=== PATIENT | female | born 1995 | race Two or more races ===

== ENCOUNTER 2018-10-30 05:20 | Emergency (ER) | payer SELFPAY ==
[~2018-10-30] VITALS: Ht 160 cm; Wt 63.5 kg
--- NOTE | 2018-10-30 05:43 | ED.ADGEN ---
Adult General Chief Complaint Chief Complaint abd pain (SUDHIR HEREDIA MD) HPI HPI 24 hours old female whose 2 and half months presented to the emergency department with abdominal pain described as burning sensation in the epigastric area radiating chest associated with nausea and some vomiting she mentioned that she's having history of acid reflux. Also she noticed spotting with pelvic cramps resolved prior to her presentation to the emergency department no active bleeding, (SUDHIR HEREDIA MD) Review of Systems Review of Systems Constitutional: Denies fever or chills [] Eyes: Denies change in visual acuity, redness, or eye pain [] HENT: Denies nasal congestion or sore throat [] Respiratory: Denies cough or shortness of breath [] Cardiovascular: No additional information not addressed in HPI [] GI: Denies abdominal pain, nausea, vomiting, bloody stools or diarrhea [] : Denies dysuria or hematuria [] Musculoskeletal: Denies back pain or joint pain [] Integument: Denies rash or skin lesions [] Neurologic: Denies headache, focal weakness or sensory changes [] Endocrine: Denies polyuria or polydipsia [] All other systems were reviewed and found to be within normal limits, except as documented in this note. (SUDHIR HEREDIA MD) Current Medications Current Medications Current Medications Medications (Trade) Dose Ordered Sig/Yunior Start Time Stop Time Status Last Admin Dose Admin Ondansetron HCl (Zofran Odt) 4 mg 1X ONCE 10/30/18 07:00 10/30/18 07:01 DC 10/30/18 06:45 4 MG Pantoprazole Sodium (Protonix) 40 mg STK-MED ONCE 10/30/18 06:43 10/30/18 06:44 DC (THELMA PORTER DO) Allergies Allergies Allergies Coded Allergies Type Severity Reaction Last Updated Verified No Known Drug Allergies 10/30/18 No (THELMA PORTER DO) Physical Exam Physical Exam Constitutional: Well developed, well nourished, no acute distress, non-toxic appearance. [] HENT: Normocephalic, atraumatic, bilateral external ears normal, oropharynx moist, no oral exudates, nose normal. [] Eyes: PERRLA, EOMI, conjunctiva normal, no discharge. [] Neck: Normal range of motion, no tenderness, supple, no stridor. [] Cardiovascular:Heart rate regular rhythm, no murmur [] Lungs & Thorax: Bilateral breath sounds clear to auscultation [] Abdomen: Bowel sounds normal, soft, tenderness periumbilical and epigastric no masses, no pulsatile masses. [] Patient refused pelvic exam Skin: Warm, dry, no erythema, no rash. [] Back: No tenderness, no CVA tenderness. [] Extremities: No tenderness, no cyanosis, no clubbing, ROM intact, no edema. [] Neurologic: Alert and oriented X 3, normal motor function, normal sensory function, no focal deficits noted. [] Psychologic: Affect normal, judgement normal, mood normal. [] (SUDHIR HEREDIA MD) Current Patient Data Vital Signs Vital Signs Date Time Temp Pulse Resp B/P (MAP) Pulse Ox O2 Delivery O2 Flow Rate FiO2 10/30/18 05:25 99.1 77 18 99 Room Air ([facility]) Lab Results Laboratory Tests Test 10/30/18 05:20 10/30/18 05:45 Urine Collection Type Unknown Urine Color Yellow Urine Clarity Clear Urine pH 5.5 Urine Specific [place] >=1.030 Urine Protein 30 mg/dl (NEG-TRACE) Urine Glucose (UA) Neg mg/dL (NEG) Urine Ketones (Stick) Trace mg/dL (NEG) Urine Blood Trace (NEG) Urine Nitrite Neg (NEG) Urine Bilirubin Neg (NEG) Urine Urobilinogen Dipstick 0.2 mg/dL (0.2 mg/dL) Urine Leukocyte Esterase Neg (NEG) Urine RBC Occ /HPF (0-2) Urine WBC Occ /HPF (0-4) Urine Squamous Epithelial Cells Mod /LPF Urine Bacteria 0 /HPF (0-FEW) White Blood Count 10.0 x10^3/uL (4.0-11.0) Red Blood Count 3.91 x10^6/uL (3.50-5.40) Hemoglobin 12.4 g/dL (12.0-15.5) Hematocrit 36.5 % (36.0-47.0) Mean Corpuscular Volume 93 fL (79-100) Mean Corpuscular Hemoglobin 32 pg (25-35) Mean Corpuscular Hemoglobin Concent 34 g/dL (31-37) Red Cell Distribution Width 11.9 % (11.5-14.5) Platelet Count 205 x10^3/uL (140-400) Neutrophils (%) (Auto) 75 % (31-73) H Lymphocytes (%) (Auto) 19 % (24-48) L Monocytes (%) (Auto) 6 % (0-9) Eosinophils (%) (Auto) 1 % (0-3) Basophils (%) (Auto) 0 % (0-3) Neutrophils # (Auto) 7.5 x10^3uL (1.8-7.7) Lymphocytes # (Auto) 1.9 x10^3/uL (1.0-4.8) Monocytes # (Auto) 0.6 x10^3/uL (0.0-1.1) Eosinophils # (Auto) 0.1 x10^3/uL (0.0-0.7) Basophils # (Auto) 0.0 x10^3/uL (0.0-0.2) Maternal Serum HCG Beta Subunit 62075 mIU/mL (0-6) H Sodium Level 137 mmol/L (136-145) Potassium Level 3.4 mmol/L (3.5-5.1) L Chloride Level 103 mmol/L (98-107) Carbon Dioxide Level 25 mmol/L (21-32) Anion Gap 9 (6-14) Blood Urea Nitrogen 6 mg/dL (7-20) L Creatinine 0.6 mg/dL (0.6-1.0) Estimated GFR (Cockcroft-Gault) 122.8 BUN/Creatinine Ratio 10 (6-20) Glucose Level 100 mg/dL (70-99) H Calcium Level 8.8 mg/dL (8.5-10.1) Total Bilirubin 0.3 mg/dL (0.2-1.0) Aspartate Amino Transferase (AST) 7 U/L (15-37) L Alanine Aminotransferase (ALT) 10 U/L (14-59) L Alkaline Phosphatase 56 U/L (46-116) Total Protein 7.4 g/dL (6.4-8.2) Albumin 3.9 g/dL (3.4-5.0) Albumin/Globulin Ratio 1.1 (1.0-1.7) (THELMA PORTER DO) EKG EKG [] (SUDHIR HEREDIA MD) Radiology/Procedures Radiology/Procedures [] (SUDHIR HEREDIA MD) Impressions: Examination: Obstetric ultrasound less than 14 weeks HISTORY: History of vaginal spotting COMPARISON: FINDINGS: The uterus measures 12.2 x 1.7 x 5.2 cm. The right ovary measures 3.0 x 2.8 x 1.2 cm. The left ovary measures 2.9 x 1.8 x 2.9 cm. Single living intrauterine identified with heart rate of 175 bpm. Intrauterine gestational sac identified measuring 3.4 cm corresponding to 8 weeks and 4 days. The crown-rump length measures 2.9 cm corresponding to 9 weeks and 5 days. LMP is 08/07/2019. Clinical age is 12 weeks and 0 days with estimated date of delivery by LMP 05/14/2019. Ultrasound age is 9 weeks and 1 day with estimated date of delivery by ultrasound 06/03/2019. There is a 1.9 cm heterogeneous echogenicity identified in the subchorionic region probably a small subchorionic bleed. IMPRESSION: 1. Single living intrauterine as described above. 2. 1.9 cm heterogeneous echogenicity identified in the subchorionic region probably a small subchorionic bleed. Follow-up examination is recommended. Electronically signed by: Arthur Koroma MD (10/30/2018 9:29 AM) [place] [id number] DICTATED AND SIGNED BY: ARTHUR KOROMA MD DATE: 10/30/18 0925 CC: THELMA PORTER DO; PCP,NO Examination: ABDOMEN COMPLETE History: pain is also around eduard umbilical so I looked around there Comparison/Correlation: None Findings: Upper abdominal ultrasound exam was performed. Imaging also was performed in the umbilical region were symptoms are reported. Gallbladder is normal. No cholelithiasis liver length is 14.3 cm. No biliary dilatation. Common bile duct measures up to 0.3 cm diameter. Right kidney measures 10.5 cm x 5 increasing by 5.2 cm. Left kidney measures 11.1 cm x 4.4 seen by 4.9 cm. No hydronephrosis. Renal contours and echotexture are unremarkable. Portal venous flow is normal. Spleen is normal. Pancreas is poorly visualized. Abdominal aorta and inferior vena cava are unremarkable. Umbilical region is unremarkable. No hernia identified at the umbilicus. Impression: No suspicious process. Unremarkable exam. Electronically signed by: Ezekiel Gaona MD (10/30/2018 8:11 AM) [id number] DICTATED AND SIGNED BY: EZEKIEL GAONA MD DATE: 10/30/18 0807 CC: THELMA PORTER DO; SUDHIR HEREDIA MD; PCP,[facility] (THELMA PORTER DO) Course & Med Decision Making Course & Med Decision Making Pertinent Labs and Imaging studies reviewed. (See chart for details) care transferred to Dr. Porter 6 AM [] (SUDHIR HEREDIA MD) Course & Med Decision Making The patient had some considerable bowel gas in her abdomen. No signs of hernia in the region of the umbilicus. Her pelvic ultrasound does show a single live intrauterine around 8 weeks. It also shows a 1.9 cm area that is likely a subchorionic hemorrhage. See official report for more details. I have advised patient to follow up with [facility] as soon as possible for further management. She is stable for discharge at this time. (THELMA PORTER DO) Final Impression Final Impression [] Problems: (1) Abdominal pain Qualifiers: Qualified Codes: R10.30 - Lower abdominal pain, unspecified (SUDHIR HEREDIA MD ) Problems: (1) Qualifiers: Qualified Codes: Z3A.08 - 8 weeks gestation of (2) Subchorionic hemorrhage Qualifiers: (3) Abdominal pain Qualifiers: Qualified Codes: R10.30 - Lower abdominal pain, unspecified (THELMA PORTER DO) Dragon Disclaimer Dragon Disclaimer This electronic medical record was generated, in whole or in part, using a voice recognition dictation system. (SUDHIR HEREDIA MD) SUDHIR HEREDIA MD Oct 30, 2018 05:43 THELMA PORTER DO Oct 30, 2018 09:49
[2018-10-30 05:57] LABS: BASO % 0 % (0-3); EOS # 0.1 x10^3/uL (0.0-0.7); EOS % 1 % (0-3); HEMATOCRIT 36.5 % (36.0-47.0); HEMOGLOBIN 12.4 g/dL (12.0-15.5); LYMPH # 1.9 x10^3/uL (1.0-4.8); LYMPH % 19 % (24-48); MEAN CORPUSCULAR HEMOGLOBIN 32 pg (25-35); MEAN CORPUSCULAR HGB CONC 34 g/dL (31-37); MEAN CORPUSCULAR VOLUME 93 fL (79-100); MONO # 0.6 x10^3/uL (0.0-1.1); MONO % 6 % (0-9); NEUT # 7.5 x10^3uL (1.8-7.7); NEUT % 75 % (31-73); PLATELET COUNT 205 x10^3/uL (140-400); RED BLOOD COUNT 3.91 x10^6/uL (3.50-5.40); RED CELL DISTRIBUTION WIDTH 11.9 % (11.5-14.5)
[2018-10-30 06:01] LABS: BILIRUBIN,URINE NEG (NEG); CLARITY,URINE CLEAR; COLOR,URINE YELLOW; GLUCOSE,URINE NEG (NEG); NITRITE,URINE NEG (NEG); UROBILINOGEN,URINE 0.2 mg/dL (0.2 mg/dL)
[2018-10-30 06:02] LABS: BACTERIA,URINE 0 /HPF (0-FEW); RBC,URINE OCC /HPF (0-2); SQUAMOUS EPITHELIAL CELL,UR MOD /LPF; WBC,URINE OCC /HPF (0-4)
[2018-10-30 06:15] LABS: ALBUMIN 3.9 g/dL (3.4-5.0); ALBUMIN/GLOBULIN RATIO 1.1 (1.0-1.7); CALCIUM 8.8 mg/dL (8.5-10.1); CREATININE 0.6 mg/dL (0.6-1.0); GFR 122.8; POTASSIUM 3.4 mmol/L (3.5-5.1); TOTAL BILIRUBIN 0.3 mg/dL (0.2-1.0); TOTAL PROTEIN 7.4 g/dL (6.4-8.2)
[2018-10-30] MEDS ORDERED: PANTOPRAZOLE 40 MG TABLET. PO ONE ×2 (06:43→07:00)
[2018-10-30] MEDS ORDERED: ONDANSETRON ODT 4 MG TAB.RAPDIS PO ONE (07:00)
--- NOTE | 2018-10-30 08:14 | RAD ---
Examination: ABDOMEN COMPLETE History: pain is also around eduard umbilical so I looked around there Comparison/Correlation: None Findings: Upper abdominal ultrasound exam was performed. Imaging also was performed in the umbilical region were symptoms are reported. Gallbladder is normal. No cholelithiasis liver length is 14.3 cm. No biliary dilatation. Common bile duct measures up to 0.3 cm diameter. Right kidney measures 10.5 cm x 5 increasing by 5.2 cm. Left kidney measures 11.1 cm x 4.4 seen by 4.9 cm. No hydronephrosis. Renal contours and echotexture are unremarkable. Portal venous flow is normal. Spleen is normal. Pancreas is poorly visualized. Abdominal aorta and inferior vena cava are unremarkable. Umbilical region is unremarkable. No hernia identified at the umbilicus. Impression: No suspicious process. Unremarkable exam. Electronically signed by: Ezekiel Zhang MD (10/30/2018 8:11 AM) [id number]
--- NOTE | 2018-10-30 09:32 | RAD ---
Examination: Obstetric ultrasound less than 14 weeks HISTORY: History of vaginal spotting COMPARISON: FINDINGS: The uterus measures 12.2 x 1.7 x 5.2 cm. The right ovary measures 3.0 x 2.8 x 1.2 cm. The left ovary measures 2.9 x 1.8 x 2.9 cm. Single living intrauterine identified with heart rate of 175 bpm. Intrauterine gestational sac identified measuring 3.4 cm corresponding to 8 weeks and 4 days. The crown-rump length measures 2.9 cm corresponding to 9 weeks and 5 days. LMP is 08/07/2019. Clinical age is 12 weeks and 0 days with estimated date of delivery by LMP 05/14/2019. Ultrasound age is 9 weeks and 1 day with estimated date of delivery by ultrasound 06/03/2019. There is a 1.9 cm heterogeneous echogenicity identified in the subchorionic region probably a small subchorionic bleed. IMPRESSION: 1. Single living intrauterine as described above. 2. 1.9 cm heterogeneous echogenicity identified in the subchorionic region probably a small subchorionic bleed. Follow-up examination is recommended. Electronically signed by: Arthur Koroma MD (10/30/2018 9:29 AM) [id number]
[2018-10-30 09:58] VITALS: BP 108/54
== END 2018-10-30 09:58 | disposition home or self-care (01) ==
LOC: ER 05:20
DX: O20.8 Other hemorrhage in early pregnancy (principal); O21.9 Vomiting of pregnancy, unspecified; R10.30 Lower abdominal pain, unspecified; Z3A.09 9 weeks gestation of pregnancy
CPT/HCPCS: 36415; 76700; 76801; 76817; 80053; 81001; 84702; 85025; 99284; Q0162